=== PATIENT | female | born 1990 | race Caucasian/White ===

== ENCOUNTER 2017-12-22 16:16 | Emergency (ER) | payer MEDICAID ==
[~2017-12-22] VITALS: Ht 160 cm; Wt 45.4 kg
[2017-12-22] MEDS ORDERED: ADVAIR (16:24)
--- NOTE | 2017-12-22 16:47 | NUR ---
Dr Ferreira at the bedside for MSE.
[2017-12-22] MEDS ORDERED: HYDROCODONE/APAP 5-325MG TABLET ONE (17:39)
[2017-12-22] MEDS ORDERED: HYDROCODONE/APAP 5-325MG TABLET PO ONE (17:45)
--- NOTE | 2017-12-22 17:47 | NUR ---
Patient discharged to home in stable conditon. Written and verbal after care instructions given. Patient verbalizes understanding of instructions.
[2017-12-22 17:48] VITALS: BP 121/87
== END 2017-12-22 17:51 | disposition home or self-care (01) ==
LOC: ER 16:17
DX: S60.212A Contusion of left wrist, initial encounter (principal); S60.211A Contusion of right wrist, initial encounter; G56.03 Carpal tunnel syndrome, bilateral upper limbs; J45.909 Unspecified asthma, uncomplicated; Z88.0 Allergy status to penicillin; Z88.1 Allergy status to other antibiotic agents; X58.XXXA Exposure to other specified factors, initial encounter; Y93.89 Activity, other specified; Y92.89 Other specified places as the place of occurrence of the external cause; Y99.8 Other external cause status
CPT/HCPCS: 29125; 99283; A4663

== ENCOUNTER 2021-08-09 10:38 | Emergency (ER) | payer OTHER ==
[~2021-08-09] VITALS: Ht 160 cm; Wt 61.2 kg
[~2021-08-09 10:38] MED LIST: ADVAIR
--- NOTE | 2021-08-09 10:50 | NUR ---
Dr Solis at the bedside for MSE.
[2021-08-09] MEDS ORDERED: CLINDAMYCIN PHOSPHATE IV 600 MG in IV DEXTROSE 5% 100 ML IV ONE (11:00)
--- NOTE | 2021-08-09 11:06 | NUR ---
Attempted twice to place a HL on pt, not able to. Dr Solis made aware.
--- NOTE | 2021-08-09 11:15 | NUR ---
Pt refused to have HL and blood draw. Dr Solis speaking to pt.
[2021-08-09] MEDS ORDERED: CLIN300C12 PO (12:13)
[2021-08-09] MEDS ORDERED: NALO4SPR BNOSTRILS (12:13)
--- NOTE | 2021-08-09 12:22 | NUR ---
Patient does not wish to proceed with medical care recommended by Dr. Carroll). Patient given information related to possible complications, up to and including , which could occur as a result of leaving the hospital at this time. Patient verbalizes understanding of risks involved due to leaving against medical advice. Patient has signed AMA form.
--- NOTE | 2021-08-09 12:22 | NUR ---
Patient given written and verbal discharge instructions. Patient verbalizes understanding of instructions. Patient is ambulatory with steady gait. Refuses offer of snf placement. Patient given list of available shelters in surrounding area.
[2021-08-09 12:26] VITALS: BP 112/81
== END 2021-08-09 12:29 | disposition home or self-care (01) ==
LOC: ER 10:40
DX: L02.413 Cutaneous abscess of right upper limb (principal); S51.031S Puncture wound without foreign body of right elbow, sequela; X78.8XXS Intentional self-harm by other sharp object, sequela; F11.10 Opioid abuse, uncomplicated; F15.10 Other stimulant abuse, uncomplicated; F19.10 Other psychoactive substance abuse, uncomplicated; Z88.1 Allergy status to other antibiotic agents; Z88.0 Allergy status to penicillin; Z59.00 Homelessness unspecified; Z53.29 Procedure and treatment not carried out because of patient's decision for other reasons
CPT/HCPCS: A4663

== ENCOUNTER 2023-05-14 13:42 | Emergency (ER) | payer OTHER ==
[~2023-05-14] VITALS: Ht 160 cm; Wt 61.2 kg
[~2023-05-14 13:42] MED LIST changes: +CLIN300C12 PO; +NALO4SPR BNOSTRILS
[2023-05-14 14:09] VITALS: O2SAT 97
[2023-05-14] MEDS ORDERED: CLIN300C12 PO (14:29)
[2023-05-14] MEDS ORDERED: ONDA4TAB5 PO (14:39)
== END 2023-05-14 15:14 | disposition home or self-care (01) ==
LOC: ER 13:45
DX: L72.3 Sebaceous cyst (principal); J45.909 Unspecified asthma, uncomplicated; F17.210 Nicotine dependence, cigarettes, uncomplicated; Z59.00 Homelessness unspecified; Z88.0 Allergy status to penicillin; Z88.8 Allergy status to other drugs, medicaments and biological substances; Z79.2 Long term (current) use of antibiotics; Z79.899 Other long term (current) drug therapy
CPT/HCPCS: A4606; A4663